=== PATIENT | female | born 1955 | race Two or more races ===

== ENCOUNTER 2020-11-02 14:59 | Emergency (ER) | payer MEDICARE, OTHER ==
[~2020-11-02] VITALS: Ht 157.5 cm; Wt 62.6 kg
[2020-11-02 15:03] VITALS: BP 146/63
--- NOTE | 2020-11-02 15:15 | NUR ---
PT PROVIDED URINE SAMPLE AND WALKED TO BED 9 WITH EVEN STEADY GAIT
--- NOTE | 2020-11-02 15:19 | NUR ---
65 Y/O C/O CONSTANT FLANK/LOWER BACK PAIN 10/10 DESCRIBES SHARP RADIATES TO UPPER BACK AND NECK x3 MONTHS. PT STATED SHE SAW PCP YESTERDAY IN [place] AND WAS TO BE SCHEDULED FOR A CT, WAITING ON APPT, SYMPTOMS WORSENING. PT STATES SHE HAS SEEN DR SEVERAL TIMES SINCE JULY AND HAD IMAGING DONE. PT STATES FATIGUE, DIZZINESS, +N/V, +FEVER/CHILLS. PT AMBULATES WITH STEADY GAIT. PT DENIES DYSURIA BUT C/O URINARY URGENCY/FREQUENCY/ FOUL SMELLING URINE. PT DENIES TAKING ANYTHING FOR PAIN. PT A/O X4 WITH EVEN AND UNLABORED RESPIRATIONS. PT SITTING IN CHAIR AT BEDSIDE. PT IS NIGERIAN SPEAKING. PMH: RENAL CALCULI X14YRS, 1 KIDNEY REMOVED. JOSEA
--- NOTE | 2020-11-02 15:20 | NUR ---
DR ROSS AT BEDSIDE
[2020-11-02] MEDS ORDERED: ACETAMINOPHEN EXTRA STRENGTH 500 MG TAB PO ONE (15:25)
--- NOTE | 2020-11-02 15:30 | NUR ---
PT TAKEN TO CT VIA W/C
--- NOTE | 2020-11-02 15:45 | NUR ---
pt back from ct
[2020-11-02 15:50] LABS: BASOPHILS % (AUTO) 0.3 % (0.0-2.0); EOSINOPHILS # (AUTO) 0.1 K/uL (0-0.4); EOSINOPHILS % (AUTO) 0.7 % (0.0-4.0); HEMATOCRIT 38.7 % (36-48); HEMOGLOBIN 12.7 g/dL (12.0-16.0); LYMPHOCYTES # (AUTO) 1.5 K/uL (2.5-16.5); MEAN CORPUSCULAR HEMOGLOBIN 29 pg (27-31); MEAN CORPUSCULAR HGB CONC 33 g/dL (33-37); MEAN CORPUSCULAR VOLUME 87.4 fL (80-94); MONOCYTES # (AUTO) 0.8 K/uL (0.8-1.0); MONOCYTES % (AUTO) 9.7 % (1.7-9.3); NEUTROPHILS # (AUTO) 6.1 K/uL (1.8-7.7); NEUTROPHILS % (AUTO) 71.3 % (42.2-75.2); PLATELET COUNT (AUTO) 218 K/uL (140-450); RED BLOOD CELL COUNT(AUTO) 4.43 MIL/uL (4.20-5.40); RED CELL DISTRIBUTION WIDTH 14.2 % (11.6-13.7); WHITE BLOOD COUNT (AUTO) 8.5 K/uL (4.8-10.8)
[2020-11-02 15:51] LABS: APPEARANCE,URINE SL CLOUDY (CLEAR); BILIRUBIN,URINE 2+ (NEGATIVE); BLOOD, URINE TRACE-I (NEGATIVE); COLOR,URINE YELLOW (YELLOW); LEUKOCYTE ESTERASE ,URINE 2+ (NEGATIVE); NITRITE, URINE NEGATIVE (NEGATIVE); UGLUCOSE NEGATIVE (NEGATIVE)
[2020-11-02 16:00] LABS: ALBUMIN 2.7 g/dL (3.4-5.0); ANION GAP 10.6 (8-16); CREATININE 1.1 mg/dL (0.6-1.3); POTASSIUM 3.6 mmol/L (3.5-5.1); TOTAL BILIRUBIN 0.4 mg/dL (0.0-1.0)
[2020-11-02 16:00] LABS: WBC,URINE 20-60 /HPF (0-5)
[2020-11-02] MEDS ORDERED: CEPH500C16 PO (16:49)
[2020-11-02] MEDS ORDERED: BEN10 PO (16:49)
[2020-11-02] MEDS ORDERED: fentaNYL citrate 0.05 MG/ML VIAL IM ONE (16:55)
[2020-11-02 17:27] VITALS: BP 146/63
--- NOTE | 2020-11-02 17:27 | NUR ---
Patient discharged with v/s stable. Written and verbal after care instructions given and explained. Patient alert, oriented and verbalized understanding of instructions. Ambulatory with steady gait. All questions addressed prior to discharge. ID band removed. Patient advised to follow up with PMD. Rx of cephalexin and dicylomine hydrocloride given. Patient educated on indication of medication including possible reaction and side effects. Opportunity to ask questions provided and answered.
== END 2020-11-02 17:23 | disposition home or self-care (01) ==
LOC: MED 14:59
DX: N39.0 Urinary tract infection, site not specified (principal); N20.0 Calculus of kidney; Z79.899 Other long term (current) drug therapy
CPT/HCPCS: 36415; 74176; 80053; 81001; 83690; 85025; 87086; 96372; 99284; J3010